=== PATIENT | male | born 1965 | race Caucasian/White ===

== ENCOUNTER 2021-04-22 04:35 | Emergency (ER) | payer OTHER ==
[~2021-04-22] VITALS: Ht 165.1 cm; Wt 70.3 kg
[2021-04-22 04:53] VITALS: BP 143/89
== END 2021-04-22 06:45 | disposition left against medical advice (07) ==
LOC: MED 04:35
DX: M79.644 Pain in right finger(s) (principal); Z53.21 Procedure and treatment not carried out due to patient leaving prior to being seen by health care provider